=== PATIENT | male | born 1965 | race Caucasian/White ===

== ENCOUNTER → 2025-01-26 08:41 | Outpatient (BNVA) | payer SELFPAY | PROVIDERS: Referring Provider Nurse Practitioner; Visit Provider Dermatology | DX: Z01.89 Encounter for other specified special examinations (principal) | CPT/HCPCS: 83721 ==

== ENCOUNTER → 2025-04-27 08:02 | Outpatient (BNVA) | payer SELFPAY | PROVIDERS: Visit Provider Dermatology | DX: Z01.89 Encounter for other specified special examinations (principal) | CPT/HCPCS: 83721 ==